=== PATIENT | female | born 1985 | race Caucasian/White ===

== ENCOUNTER 2019-02-22 04:06 | Emergency (ER) | payer OTHER ==
--- NOTE | 2019-02-22 04:14 | PDOC ---
History of Present Illness - General Chief Complaint: Pain Stated Complaint: EPIGASTRIC PAIN Time Seen by Provider: 02/22/19 04:14 History Source: Patient - History of Present Illness Initial Comments: 02/22/19 04:23 The patient is a 33 female at a self reported 20 weeks gestation who presents from L&D for acute onset of pain. Pain is epigastric, "knots" and woke her from sleep @ 1:30 a.m. today. Nausea w/o vomiting. Last BM prior to presentation and was normal. Follows with Dr. Lujan and last appointment was two weeks previous with no concerning findings on labs or U/S. Past History - Past Medical History Allergies/Adverse Reactions: Allergies Allergy/AdvReac Type Severity Reaction Status Date / Time coconut Allergy Mild Hives Verified 02/22/19 04:11 Home Medications: Ambulatory Orders Albuterol Sulfate Inhaler - [Ventolin HFA Inhaler -] 2 inh IH PRN PRN 02/22/19 Nitrofurantoin Monohyd/M-Cryst [Macrobid -] 100 mg PO BID #6 capsule 02/22/19 Pnv No.95/Ferrous Fum/Folic AC [ Vitamin Tablet] 1 each PO DAILY COPD: No - Suicide/Smoking/Psychosocial Hx Smoking History: Never smoked Review of Systems - Review of Systems Constitutional: No: Chills, Fever HEENTM: No: Recent change in vision Respiratory: No: Shortness of Breath, Wheezing Cardiac (ROS): No: Chest Pain, Lightheadedness, Palpitations, Syncope ABD/GI: Yes: Nausea, Abdominal cramping. No: Constipated, Diarrhea, Vomiting *Physical Exam - Vital Signs Last Vital Signs Temp Pulse Resp BP Pulse Ox 97.4 F L 80 18 111/64 100 02/22/19 04:08 02/22/19 04:08 02/22/19 04:08 02/22/19 04:08 02/22/19 04:08 - Physical Exam Comments: 02/22/19 04:25 Awake, alert S1, S2, Murmur Lungs CLTA B/L no wheeze/crackle No lower extremity edema, 2+ DP pulse B/L Fundal height between umbilicus sub-xiphoid Medical Decision Making - Medical Decision Making 02/22/19 04:26 33 year old female at self reported 5 months with epigastric abdominal pain. Patient cleared by L&D earlier this evening w/FHR monitoring. Will check urine for asymptomatic bateruria. GI cocktail. Reassess. 02/22/19 04:50 Bedside U/S shows IUP with FHR 132 UA shows 2+ LE with 15 WBC, will treat for ASx bateruria 02/22/19 05:18 Patient reassessed @ bedside; states pain is improved; previously scheduled f/u with OB-Flight Operations Engineer Dr. Lujan tomorrow (02/23). Will discharge home with supportive care and Macrobid prescription. Patient counseled to complete entire antibiotic course. I discussed the physical exam findings, ancillary test results and final diagnoses with the patient. I answered all of the patient's questions. The patient was satisfied with the care received and felt comfortable with the discharge plan and treatment plan. The patient will return to the Emergency Department with any new, persistent or worsening symptoms. *DC/Admit/Observation/Transfer Diagnosis at time of Disposition: Epigastric pain - Discharge Dispostion Disposition: HOME Condition at time of disposition: Good Decision to Admit order: No - Prescriptions Prescriptions: Nitrofurantoin Monohyd/M-Cryst [Macrobid -] 100 mg PO BID #6 capsule - Referrals - Patient Instructions Printed Discharge Instructions: Managing Symptoms of Additional Instructions: You can take Maalox for your pain. Return to the Emergency Department for any new/worsening/concerning symptoms. - Post Discharge Activity
[2019-02-22] MEDS ORDERED: MAG HYDROX/AL HYDROX/SIMETH 30 ML UNIT-DOSE CUP PO ONE (04:21)
[2019-02-22] MEDS ORDERED: MAG HYDROX/AL HYDROX/SIMETH 30 ML UNIT-DOSE CUP ONE (04:23)
[2019-02-22 04:31] VITALS: BP 111/64; PULSE 80; TEMP 97.4; BMI 45.3
[2019-02-22 04:42] LABS: EPI CELLS 3.9 /HPF (0-5/HPF); PH,URINE 6.5 (5.0-8.0); URINE APPEARANCE CLEAR; URINE BACTERIA 130.6 /hpf (NEGATIVE); URINE BILIRUBIN NEGATIVE (NEGATIVE); URINE CASTS 1 /lpf (0-8); URINE COLOR YELLOW; URINE GLUCOSE (UA) NEGATIVE (NEGATIVE); URINE KETONE NEGATIVE (NEGATIVE); URINE LEUK ESTERASE 2+ (NEGATIVE); URINE NITRITE NEGATIVE (NEGATIVE); URINE PROTEIN NEGATIVE (NEGATIVE); URINE RBC 1 /hpf (0-4); URINE UROBILINOGEN 0.2 mg/dL (0.2-1.0); URINE WBC 15 /hpf (0-5)
--- NOTE | 2019-02-22 06:06 | PDOC ---
Attending Attestation - Resident Resident Name: Mayela Zuñiga - ED Attending Attestation I have performed the following: I have examined & evaluated the patient, The case was reviewed & discussed with the resident, I agree w/resident's findings & plan - HPI HPI: 02/22/19 06:05 Pt comes with epig pain. She has been cleared by the BIOLOGY LECTURER as she is in her 3rd trimester of . - Physicial Exam PE: 02/22/19 06:05 Agree with resident exam - Medical Decision Making 02/22/19 06:05 Pt feels better with maalox; she will follow with her PMD. Pt will be treated empirically for UTI.
== END 2019-02-22 05:24 | disposition home or self-care (01) ==
LOC: JER 04:06
PROC: BY4CZZZ Ultrasonography of Second Trimester, Single Fetus (ICD-10-PCS; principal; 2019-02-22)
DX: O26.892 Other specified pregnancy related conditions, second trimester (principal); R82.71 Bacteriuria; R10.13 Epigastric pain; Z3A.20 20 weeks gestation of pregnancy
CPT/HCPCS: 76801-TC; 81003; 99282-25

== ENCOUNTER 2019-03-29 07:00 | Inpatient (IN) | payer OTHER ==
[2019-03-29] MEDS: ELECTROLYTE-148 SOLN 1,000 ML IV SCH ×2 (07:00→08:00)
[2019-03-29] MEDS ORDERED: CITRIC ACID/SODIUM CITRATE 30 ML UNIT-DOSE CUP PO ONE (07:24)
--- NOTE | 2019-03-29 07:31 | HP ---
Past Medical History - Admission Chief Complaint: Elective History of Present Illness: 33 yo @ 39 weeks, EDC 04/05/19, with prior , is pre op for repeat . No complaints. History Source: Patient Limitations to Obtaining History: No Limitations - Past Medical History ...EDC by Tristian: 04/05/19 Heme/Onc: Yes: Anemia - Past Surgical History Past Surgical History: Yes: Hx Myomectomy: No Hx Transabdominal Cerclage: No - Smoking History Smoking history: Never smoked - Alcohol/Substance Use Hx Alcohol Use: No History of Substance Use: reports: None - Social History Usual Living Arrangement: Yes: With Significant Other History of Recent Travel: No Home Medications - Allergies Allergies/Adverse Reactions: Allergies Allergy/AdvReac Type Severity Reaction Status Date / Time coconut Allergy Mild Hives Verified 03/29/19 07:24 - Home Medications Home Medications: Ambulatory Orders Albuterol Sulfate Inhaler - [Ventolin HFA Inhaler -] 2 inh IH PRN PRN 02/22/19 Nitrofurantoin Monohyd/M-Cryst [Macrobid -] 100 mg PO BID #6 capsule 02/22/19 Pnv No.95/Ferrous Fum/Folic AC [ Vitamin Tablet] 1 each PO DAILY Family Disease History - Family Disease History Family History: Unremarkable Review of Systems - Review of Systems Constitutional: reports: No Symptoms Eyes: reports: No Symptoms HENT: reports: No Symptoms Neck: reports: No Symptoms Cardiovascular: reports: No Symptoms Respiratory: reports: No Symptoms Gastrointestinal: reports: No Symptoms Genitourinary: reports: No Symptoms Breasts: reports: No Symptoms Reported Musculoskeletal: reports: No Symptoms Integumentary: reports: No Symptoms Neurological: reports: No Symptoms Endocrine: reports: No Symptoms Hematology/Lymphatic: reports: No Symptoms Psychiatric: reports: No Symptoms Pain Intensity: 0 Physical Exam - Maternity Constitutional: Yes: Well Nourished Eyes: Yes: Conjunctiva Clear HENT: Yes: Atraumatic Neck: Yes: Supple Cardiovascular: Yes: Regular Rate and Rhythm Lungs: Clear to auscultation Breast(s): Yes: WNL - Abdominal Exam/OB Number of Fetuses: Single Presentation: Vertex - Vaginal Exam/OB Vaginal Bleediing: No - Physical Exam ...Motor Strength: WNL Psychiatric: Yes: Alert, Oriented Problem List - Problems (1) 39 weeks gestation of Code(s): Z3A.39 - 39 WEEKS GESTATION OF (2) Previous section Code(s): Z98.891 - HISTORY OF UTERINE SCAR FROM PREVIOUS SURGERY Assessment/Plan Elective Pre op for repeat Consent signed Anesthesia to see patient
[2019-03-29 07:47] VITALS: BMI 44.1
[2019-03-29] MEDS ORDERED: OXYTOCIN 20 UNITS in 0.9% NS 20 UNIT/1,000 ML INFUS.BAG IV ONE ×2 (08:10→10:24)
[2019-03-29] MEDS ORDERED: ePHEDrine SULFATE 50 MG/1 ML AMPULE ONE (08:11)
[2019-03-29] MEDS ORDERED: morphine SULFATE/PF 0.5 MG/ML (2cc Syringe - QUVA) ONE (08:12)
[2019-03-29] MEDS ORDERED: ceFAZolin SODIUM 1 GM VIAL ONE (08:14)
[2019-03-29] MEDS ORDERED: METHYLERGONOVINE MALEATE 0.2 MG/1 ML AMP IM PRN (09:23)
--- NOTE | 2019-03-29 09:28 | OP ---
Operative Note - Note: Operative Date: 03/29/19 Pre-Operative Diagnosis: Elective Operation: Repeat Low Transverse Findings: Baby boy in LOT position Post-Operative Diagnosis: Same as Pre-op Surgeon: Maria Teresa Lujan Software Engineer Sales: Ramon Haley Anesthesia: Spinal Specimens Removed: Placenta Estimated Blood Loss (mls): 600 Operative Report Dictated: Yes
[2019-03-29] MEDS ORDERED: ONDANSETRON 4 MG/2 ML VIAL IVPUSH PRN (09:33)
[2019-03-29] MEDS: FERROUS SO4 325 MG TABLET (FP) PO SCH ×2 (10:19→18:42)
[2019-03-29] MEDS: PRENATAL VITAMINS W/ FOLIC ACID TABLET (FP) PO SCH (10:20)
[2019-03-29] MEDS: OXYTOCIN 20 UNITS in 0.9% NS 20 UNIT/1,000 ML INFUS.BAG IV SCH (10:20)
--- NOTE | 2019-03-29 12:27 | OP ---
DATE OF OPERATION: 03/29/2019 PREOPERATIVE DIAGNOSIS: Previous section at 39 weeks gestation. POSTOPERATIVE DIAGNOSIS: Previous section at 39 weeks gestation. PROCEDURE: Repeat low-transverse section. SURGEON: Maria Teresa Lujan MD TRAFFIC CONTROL OPERATOR: ARYA Lucas ANESTHESIA: Spinal. COMPLICATIONS: None. ESTIMATED BLOOD LOSS: 600 mL. PROCEDURE: Patient was taken to the operating room, where spinal anesthesia was administered. Patient was then prepped and draped in proper sterile fashion. A Pfannenstiel skin incision was then made and carried down through the underlying layer of fascia. The fascia was incised in the midline and extended laterally. The superior aspect of the fascial incision was then grasped with a Russel clamp, elevated, and the rectus muscle dissected off bluntly. Attention was then turned to the inferior aspect of the fascial incision which, in a similar fashion was then grasped with a Russel clamp, elevated, and the rectus muscle dissected off bluntly. The rectus muscle was then in the midline, the peritoneum identified and entered sharply with the Metzenbaum scissors. This incision was then extended superiorly and inferiorly, with good visualization of the bladder. The vesicouterine peritoneum was then grasped with a pickup and entered sharply with the Metzenbaum scissors. This incision was extended laterally, and a bladder flap created digitally. The bladder blade was then inserted and the lower uterine segment was then incised using a 10 blade. This incision was extended laterally and the head delivered atraumatically. Nose and mouth were suctioned and the cord clamped and cut. The infant was handed to the awaiting hotshot superintendent. The placenta was removed manually. The uterus was exteriorized and cleared of all clots and debris. The uterine incision was repaired using 0 Biosyn in a running locked fashion. A 2nd layer of the same suture was used as a means to provide excellent hemostasis. The pelvis was then completely irrigated. The uterus was returned to the abdomen. Then the peritoneum was closed using 2-0 Biosyn, and the fascia was reapproximated using 0 Vicryl in a running fashion. The skin was closed with alvin. Patient tolerated procedure well. Patient was then taken to PACU in stable condition. Pathology: Placenta. MARIA TERESA LUJAN M.D. [id number]
[2019-03-29] MEDS: IBUPROFEN 800 MG/8 ML IJ IVPB PRN ×2 (13:47→22:06)
--- NOTE | 2019-03-30 06:48 | PN ---
Post Note - Post Date of Delivery: 03/29/19 Post Day: 1 Vital Signs: Vital Signs - 24 hr 03/29/19 03/29/19 03/29/19 07:30 09:30 09:45 Temperature 97.7 F 97.4 F L Pulse Rate 84 72 63 Respiratory 18 16 18 Rate Blood Pressure 115/76 104/51 L 107/50 L O2 Sat by Pulse 97 100 Oximetry (%) 03/29/19 03/29/19 03/29/19 10:00 10:15 10:30 Temperature Pulse Rate 74 72 78 Respiratory 18 18 18 Rate Blood Pressure 112/64 108/63 108/76 O2 Sat by Pulse 100 100 100 Oximetry (%) 03/29/19 03/29/19 03/29/19 11:15 12:00 13:00 Temperature 98.4 F Pulse Rate 82 Respiratory 18 18 18 Rate Blood Pressure 114/69 O2 Sat by Pulse Oximetry (%) 03/29/19 03/29/19 03/29/19 13:57 14:00 15:00 Temperature 98.0 F Pulse Rate 77 Respiratory 18 18 18 Rate Blood Pressure 106/55 L O2 Sat by Pulse Oximetry (%) 03/29/19 03/29/19 03/29/19 16:00 17:00 18:00 Temperature 98.2 F Pulse Rate 85 Respiratory 18 18 18 Rate Blood Pressure 99/37 L O2 Sat by Pulse Oximetry (%) 03/29/19 03/29/19 03/29/19 19:00 20:00 21:00 Temperature Pulse Rate Respiratory 20 20 20 Rate Blood Pressure O2 Sat by Pulse Oximetry (%) 03/29/19 03/29/19 03/29/19 21:01 22:00 23:00 Temperature 97.6 F Pulse Rate 81 Respiratory 20 20 20 Rate Blood Pressure 107/56 L O2 Sat by Pulse Oximetry (%) 03/30/19 03/30/19 03/30/19 00:00 01:00 01:15 Temperature 97.6 F Pulse Rate 69 Respiratory 20 20 20 Rate Blood Pressure 99/61 O2 Sat by Pulse Oximetry (%) 03/30/19 03/30/19 03/30/19 02:00 03:00 04:00 Temperature Pulse Rate Respiratory 20 20 20 Rate Blood Pressure O2 Sat by Pulse Oximetry (%) 03/30/19 03/30/19 05:00 06:00 Temperature 98.0 F Pulse Rate 69 Respiratory 20 20 Rate Blood Pressure 107/62 O2 Sat by Pulse Oximetry (%) - Subjective Subjective: Other (Itching all over scrating skin badly) - Objective Afebrile: Yes Breast: Not engorged Abdomen: Soft, Other (incision dressing intact no drainage) Uterus: Fundus firm Vagina: Scant lochia Extremities: Non-tender - Assessment/Plan (1) Previous section Assessment: Other (POD1 Ictching all over) Plan: Other (Notify anesthesia benadryl)
[2019-03-30] MEDS: IBUPROFEN 600 MG TABLET (FP) PO PRN ×2 (07:24→14:25)
[2019-03-30] MEDS: SIMETHICONE 80 MG TAB.CHEW (FP) PO PRN ×2 (07:24→14:26)
[2019-03-30 08:15] LABS: BASO % 0.6 % (0-2.0); EOS % 0.8 % (0-4.5); HEMATOCRIT 28.1 % (32.4-45.2); HEMOGLOBIN 8.8 GM/dL (10.7-15.3); LYMPH % 14.2 % (8-40); MCH 22.1 pg (25.7-33.7); MCHC 31.4 g/dl (32.0-36.0); MEAN CELL VOLUME 70.5 fl (80-96); MONO % 8.6 % (3.8-10.2); NEUT % 75.8 % (42.8-82.8); PLATELET COUNT 296 K/MM3 (134-434); RBC 3.98 M/mm3 (3.60-5.2); RDW 16.6 % (11.6-15.6); WHITE BLOOD COUNT 8.2 K/mm3 (4.0-10.0)
--- NOTE | 2019-03-30 08:49 | PN ---
Progress Note, Physician Chief Complaint: s/p repeat c section under spinal anesthesia History of Present Illness: post op day one with duramorph for post op pain control. - Current Medication List Current Medications: Active Medications Bisacodyl (Dulcolax Suppository -) 10 mg RC PRN PRN PRN Reason: CONSTIPATION Diphenhydramine HCl (Benadryl Injection -) 25 mg IVPUSH Q4H PRN PRN Reason: Pruritis Last Admin: 03/30/19 03:07 Dose: 25 mg Diphtheria/Tetanus/Acell Pertussis (Boostrix -) 0.5 ml IM .ONCE ONE Stop: 03/30/19 10:01 Ferrous Sulfate (Feosol -) 325 mg PO BIDWM [facility] Last Admin: 03/29/19 18:42 Dose: Not Given Parenteral Electrolytes (Plasma-Lyte 148 -) 1,000 mls @ 125 mls/hr IV ASDIR [facility] Last Admin: 03/29/19 08:00 Dose: 125 mls/hr Oxytocin/Sodium Chloride (Normal Saline+20 Units Oxytocin -) 20 unit in 1,000 mls @ 125 mls/hr IV ASDIR [facility] Last Admin: 03/29/19 10:20 Dose: 125 mls/hr Ibuprofen (Motrin -) 600 mg PO Q4H PRN PRN Reason: PAIN LEVEL 1 - 3 Last Admin: 03/30/19 07:24 Dose: 600 mg Ibuprofen (Caldolor Injection -) 800 mg IVPB Q8H PRN PRN Reason: PAIN LEVEL 6-10 Last Admin: 03/29/19 22:06 Dose: 800 mg Methylergonovine Maleate (Methergine Injection -) 0.2 mg IM Q4H PRN PRN Reason: Excessive Bleeding (L&D) Ondansetron HCl (Zofran Injection) 4 mg IVPUSH Q4H PRN PRN Reason: NAUSEA Oxycodone HCl (Roxicodone -) 5 mg PO Q4H PRN PRN Reason: PAIN LEVEL 4 - 6 Multivit/Folic Acid/Iron ( Vitamins (Sjr) -) 1 tab PO DAILY [facility] Last Admin: 03/29/19 10:20 Dose: Not Given Simethicone (Mylicon -) 80 mg PO Q4H PRN PRN Reason: GAS Last Admin: 03/30/19 07:24 Dose: 80 mg - Objective Vital Signs: Vital Signs Temperature 98.0 F 03/30/19 06:00 Pulse Rate 69 03/30/19 06:00 Respiratory Rate 18 03/30/19 08:00 Blood Pressure 107/62 03/30/19 06:00 O2 Sat by Pulse Oximetry (%) 100 03/29/19 10:30 Constitutional: Yes: Well Nourished Cardiovascular: Yes: WNL Respiratory: Yes: WNL Gastrointestinal: Yes: WNL Labs: CBC, BMP 03/30/19 06:00 Assessment/Plan complaining about itching not relieved by Benadryl, otherwise no adverse effects , advised itching should resolve 24 hours post op. Dept of anesthesia will sign off care at this time.
[2019-03-30] MEDS: FERROUS SO4 325 MG TABLET (FP) PO SCH ×2 (09:14→18:39)
[2019-03-30] MEDS: PRENATAL VITAMINS W/ FOLIC ACID TABLET (FP) PO SCH (09:14)
[2019-03-30] MEDS ORDERED: BISACODYL 10 MG SUPP.RECT RC PRN (09:23)
[2019-03-30] MEDS ORDERED: DIPHTH,PERTUSS(ACELL),TET 0.5 ML DISP.SYRIN IM ONE (14:00)
[2019-03-30] MEDS: oxyCODONE HCL 5 MG TABLET PO PRN (14:26)
[2019-03-31] MEDS: OXYTOCIN 20 UNITS in 0.9% NS 20 UNIT/1,000 ML INFUS.BAG IV SCH (00:29)
[2019-03-31] MEDS: ELECTROLYTE-148 SOLN 1,000 ML IV SCH (00:29)
[2019-03-31] MEDS: oxyCODONE HCL 5 MG TABLET PO PRN ×2 (03:11→17:00)
[2019-03-31] MEDS: SIMETHICONE 80 MG TAB.CHEW (FP) PO PRN ×2 (03:11→15:23)
[2019-03-31] MEDS: IBUPROFEN 600 MG TABLET (FP) PO PRN ×2 (03:11→15:22)
[2019-03-31] MEDS ORDERED: ACETAMINOPHEN 325 MG TABLET (FP) PO PRN (07:30)
[2019-03-31] MEDS: FERROUS SO4 325 MG TABLET (FP) PO SCH ×2 (09:00→16:57)
[2019-03-31] MEDS: PRENATAL VITAMINS W/ FOLIC ACID TABLET (FP) PO SCH (09:05)
--- NOTE | 2019-03-31 13:15 | PATH ---
Surgical Pathology Report Patient Name: SHAHID KOWALSKI Med. Rec. #: [id number] /Age/Gender: 1985 (Age: 33) / F Account: [id number] Location: [facility] OBS/LEATHER GOODS MAKER Taken: 03/29/2019 Received: 03/30/2019 Reported: 03/31/2019 Physicians: Maria Teresa Lujan M.D. Specimen(s) Received PLACENTA Clinical History , 39.1 weeks Final Diagnosis PLACENTA, DELIVERY: FOCALLY DISRUPTED THIRD TRIMESTER PLACENTA WITH THREE VESSEL UMBILICAL CORD AND UNREMARKABLE PLACENTAL MEMBRANES. Electronically Signed Jeancarlos Stein M.D. Gross Description The specimen is received fresh labeled placenta and is a 501 gram, 20.0 x 15.5 x 2.3 cm. placenta with attached membranes and umbilical cord. The attached membranes are moctezuma, translucent with focal opacities and insert marginally. The umbilical cord measures 30 cm. in length and averages 1.4 cm. in diameter. The cord inserts eccentrically, 2.5 cm. to the nearest margin. No true knots or strictures are identified. Cut surface of the umbilical cord reveals 3 vessels. The surface is castaneda green, meconium stained with minimal fibrin deposition and appropriate caliber vessels. The maternal surface is red-brown with focal defects. Sectioning reveals red-brown, spongy parenchyma. No lesions are identified. Real Estate Attorney sections are submitted in three cassettes as follows: 1- membrane rolls and umbilical cord; 2-3- full thickness sections of placenta. /03/30/2019 [facility]03/30/2019
[2019-04-01] MEDS: oxyCODONE HCL 5 MG TABLET PO PRN (00:59)
[2019-04-01] MEDS: SIMETHICONE 80 MG TAB.CHEW (FP) PO PRN (00:59)
[2019-04-01] MEDS: IBUPROFEN 600 MG TABLET (FP) PO PRN (01:00)
[2019-04-01] MEDS ORDERED: SENNOSIDES/DOCUSATE COMBO (SENNA PLUS) TABLET (UD) PO PRN (01:45)
--- NOTE | 2019-04-01 05:52 | DS ---
Physical Exam-FILTER OPERATOR Vital Signs: Vital Signs Temperature 97.8 F 03/31/19 21:22 Pulse Rate 76 03/31/19 21:22 Respiratory Rate 20 03/31/19 21:22 Blood Pressure 116/71 03/31/19 21:22 O2 Sat by Pulse Oximetry (%) 100 03/29/19 10:30 Labs: CBC, BMP 03/30/19 06:00 Delivery - Delivery Type of Anesthesia: Spinal Episiotomy/Laceration: None EBL (cc): 600 Delivery, Single - Stages of Labor Date of Delivery: 03/29/19 Time of Delivery: 08:44 Time Placenta Delivered: 08:45 - Condition of Electric Frying Pan Repairer/Wire Winding Machine Tender Present: No Gender: Male Weight: 7 lb 14 oz Position: Left, OT Total Hours ROM (Hrs/Mins): 0/1 - 1 Minute Total Score: 9 5 Minutes Total Score: 9 - Feeding Plan Initial Plan: Exclusive throughout hospitalization Discharge Summary Reason For Visit: REPEAT Current Active Problems 39 weeks gestation of (Acute) Previous section (Acute) Hospital Course: PT admitted on 03/29 for scheduled repeat c section. Pt underwent uncomplicated procedure and delivery and was discharged home on post op day 3. Condition: Good - Instructions Diet, Activity, Other Instructions: Physical activity Resume your normal everyday activity as tolerated no heavy lifting or exercise until seen by your surgeon. You may walk unlimited kacey of and climb stairs. You may resume driving the car when you feel safe and comfortable behind the wheel. No sexual activity as instructed. Wound care If you have a bandage, leave it on, and keep dry for 48-72 hours. After that time discard the outer bandage. If they are tapes on the skin under the out of bandage leave them in place. They will peel off in the next 7 to 10 days. Do Not Peel them off. You may shower the day after surgery. If there are tapes present on the skin, you may shower over them. Diet There are no dietary restrictions. Eat healthy, high-fiber foods. Drink 6 to 8 glasses of liquid each day. This will assist in keeping your bowels are regular. Pain management You may take Tylenol or acetaminophen or Ibuprofen (for example, Motrin, Advil etc.) from my pain prescription medication is ordered should be taken as prescribed for moderate to severe pain. Call MD for any of the following: Severe pain not relieved by medication Fever of 101 or higher Excessive bleeding or drainage on dressing Inability to urinate Referrals: Maria Teresa Lujan MD [Staff Physician] - 1 Week Disposition: HOME - Home Medications Comprehensive Discharge Medication List: Ambulatory Orders Albuterol Sulfate Inhaler - [Ventolin HFA Inhaler -] 2 inh IH PRN PRN 02/22/19 Pnv No.95/Ferrous Fum/Folic AC [ Vitamin Tablet] 1 each PO DAILY
[2019-04-01] MEDS: FERROUS SO4 325 MG TABLET (FP) PO SCH (07:51)
[2019-04-01 08:47] LABS: BASO % 0.3 % (0-2.0); EOS % 3.2 % (0-4.5); HEMATOCRIT 24.9 % (32.4-45.2); LYMPH % 29.3 % (8-40); MCH 22.7 pg (25.7-33.7); MCHC 32.2 g/dl (32.0-36.0); MEAN CELL VOLUME 70.5 fl (80-96); MEAN PLT VOLUME 7.7 fl (7.5-11.1); MONO % 10.1 % (3.8-10.2); NEUT % 57.1 % (42.8-82.8); RBC 3.53 M/mm3 (3.60-5.2); RDW 16.7 % (11.6-15.6); WHITE BLOOD COUNT 6.2 K/mm3 (4.0-10.0)
[2019-04-01 09:20] LABS: PLATELET COUNT 299 K/MM3 (134-434)
[2019-04-01] MEDS: PRENATAL VITAMINS W/ FOLIC ACID TABLET (FP) PO SCH (11:23)
[2019-04-01 12:06] VITALS: BP 134/74; PULSE 75; TEMP 98.2
== END 2019-04-01 13:00 | disposition home or self-care (01) | DRG 540 ==
LOC: JLDR 07:00 → J3W 11:05 → EDSTATUS 12:46
PROVIDERS: ADMIT Obstetrics & Gynecology; ATTEND Obstetrics & Gynecology
PROC: 10D00Z1 Extraction of Products of Conception, Low, Open Approach (ICD-10-PCS; principal; 2019-03-29)
DX: O34.219 Maternal care for unspecified type scar from previous cesarean delivery (principal); Z3A.39 39 weeks gestation of pregnancy; Z37.0 Single live birth; L29.9 Pruritus, unspecified
CPT/HCPCS: 36415; 85025; 86850; 86900; 86901; 88307-TC; 90715; 94010

== ENCOUNTER 2021-09-28 15:08 | Emergency (ER) | payer OTHER ==
[2021-09-28] MEDS ORDERED: ACETAMINOPHEN 500 MG TABLET (FP) PO ONE (15:22)
[2021-09-28 15:27] VITALS: BP 116/72; PULSE 87; TEMP 97.9; BMI 43.4
[2021-09-28] MEDS ORDERED: MAG HYDROX/AL HYDROX/SIMETH -MYLANTA- ORAL SUSPENSION PO ONE (15:42)
[2021-09-28] MEDS ORDERED: FAMOTIDINE 10 MG TABLET PO ONE (15:42)
[2021-09-28] MEDS ORDERED: ACETAMINOPHEN 325 MG TABLET (FP) ONE (16:04)
[2021-09-28] MEDS ORDERED: MAG HYDROX/AL HYDROX/SIMETH 30 ML UNIT-DOSE CUP ONE (16:04)
[2021-09-28] MEDS ORDERED: FAMOTIDINE 10 MG TABLET ONE (16:04)
[2021-09-28 16:24] LABS: BASO % 0.3 % (0-2.0); EOS % 0.4 % (0-4.5); HEMATOCRIT 33.5 % (32.4-45.2); HEMOGLOBIN 10.4 GM/dL (10.7-15.3); LYMPH % 8.9 % (8-40); MCH 21.2 pg (25.7-33.7); MCHC 31.2 g/dl (32.0-36.0); MEAN CELL VOLUME 68.1 fl (80-96); MEAN PLT VOLUME 7.7 fl (7.5-11.1); MONO % 3.8 % (3.8-10.2); NEUT % 86.6 % (42.8-82.8); PLATELET COUNT 355 10^3/uL (134-434); RBC 4.91 M/mm3 (3.60-5.2); RDW 16.8 % (11.6-15.6); WHITE BLOOD COUNT 11.6 K/mm3 (4.0-10.0)
[2021-09-28 16:48] LABS: CHLORIDE 107 mmol/L (98-107); SODIUM 140 mmol/L (136-145)
[2021-09-28 16:50] LABS: ALBUMIN 3.3 g/dl (3.4-5.0); ANION GAP 7 MMOL/L (8-16); BLOOD UREA NITROGEN 9.2 mg/dL (7-18); CALCIUM 8.8 mg/dL (8.5-10.1); CO2 27 mmol/L (21-32); GLUCOSE,RANDOM 126 mg/dL (74-106); LIPASE 170 U/L (73-393); MAGNESIUM 2.1 mg/dL (1.8-2.4)
[2021-09-28 16:53] LABS: SGOT/AST 232 U/L (15-37); SGPT/ALT 135 U/L (13-61)
[2021-09-28 16:54] LABS: CREATININE 0.7 mg/dL (0.55-1.3)
[2021-09-28 16:55] LABS: BILIRUBIN,TOTAL 0.4 mg/dL (0.2-1); TOT PROT 7.9 g/dl (6.4-8.2)
[2021-09-28 16:56] LABS: ALK PHOS 145 U/L (45-117)
[2021-09-28 17:34] LABS: ANISOCYTOSIS 1+; MACROCYTOSIS 1+
[2021-09-28 17:49] LABS: EPI CELLS >36 /uL (0-25.1); HYALINE CASTS 10 /uL (0-3.1); URINE APPEARANCE CLEAR; URINE BACTERIA 862 /uL (0-1359); URINE BILIRUBIN NEGATIVE (NEGATIVE); URINE COLOR DK YELLOW; URINE GLUCOSE (UA) NEGATIVE (NEGATIVE); URINE KETONE TRACE (NEGATIVE); URINE LEUK ESTERASE TRACE (NEGATIVE); URINE NITRITE NEGATIVE (NEGATIVE); URINE PROTEIN TRACE (NEGATIVE); URINE RBC 55 /uL (0-23.9); URINE WBC 47 /uL (0-25.8)
== END 2021-09-28 18:56 | disposition home or self-care (01) ==
LOC: JER 15:08
DX: R10.13 Epigastric pain (principal)
CPT/HCPCS: 36415; 71045-TC-FY; 80053; 81003; 82550; 83690; 83735; 84484; 85025; 93005; 93010; 99284-25; C9803; U0003; U0005

== ENCOUNTER 2023-11-24 08:00 | Inpatient (IN) | payer OTHER ==
[2023-11-24] MEDS: ELECTROLYTE-148 SOLN 500 ML IV ONE (08:40)
[2023-11-24] MEDS: ELECTROLYTE-148 SOLN 1,000 ML IV SCH (09:10)
[2023-11-24 09:16] VITALS: BMI 44.6
[2023-11-24] MEDS ORDERED: IBUPROFEN 600 MG TABLET (FP) PO PRN (09:35)
[2023-11-24] MEDS ORDERED: ACETAMINOPHEN 325 MG TABLET (FP) PO PRN ×2 (09:35→13:32)
[2023-11-24] MEDS ORDERED: ONDANSETRON 4 MG/2 ML VIAL IVPUSH PRN (09:35)
[2023-11-24] MEDS: CITRIC ACID/SODIUM CITRATE 30 ML UNIT-DOSE CUP PO ONE (09:55)
[2023-11-24] MEDS ORDERED: LIGASURE IMPACT TP ONE (11:15)
[2023-11-24] MEDS ORDERED: morphine SULFATE/PF 1 MG/2 ML (2cc Syringe - QUVA) ONE ×2 (11:27→12:10)
[2023-11-24] MEDS ORDERED: FENTANYL CITRATE/PF 50 MCG/ML VIAL ONE (11:27)
[2023-11-24] MEDS ORDERED: DEXAMETHASONE SOD PHOSPHATE 4 MG/1 ML VIAL ONE (11:29)
[2023-11-24] MEDS ORDERED: KETOROLAC TROMETHAMINE 30 MG/1 ML VIAL ONE (11:29)
[2023-11-24] MEDS ORDERED: OXYTOCIN 10 UNITS/ML VIAL ONE (11:29)
[2023-11-24] MEDS ORDERED: EPINEPHrine/PF 1 MG/1 ML (1:1,000) AMPULE ONE (11:44)
[2023-11-24] MEDS ORDERED: LIDOCAINE HCL/PF 2% SDV 5ML VIAL ONE (11:44)
[2023-11-24 12:18] LABS: HIV INTERPRETATION NEGATIVE (NEGATIVE)
[2023-11-24 13:12] LABS: CORD BASE EXCESS -6.1 mmol/L (0-2); CORD HCO3 21.4 mmHg (20-29); CORD PCO2 49.7 mmHg (30-78); CORD pH 7.252 (7.14-7.44)
[2023-11-24 13:16] LABS: CORD HCO3 24.3 mmHg (20-29); CORD PCO2 62.8 mmHg (30-78); CORD pH 7.206 (7.14-7.44)
[2023-11-24] MEDS ORDERED: SENNOSIDES/DOCUSATE COMBO (SENNA PLUS) TABLET (UD) PO PRN (13:32)
[2023-11-24] MEDS ORDERED: METHYLERGONOVINE MALEATE 0.2 MG/1 ML AMP IM PRN (13:32)
[2023-11-24] MEDS: LACTATED RINGERS SOLUTION 500 ML IV ONE (15:20)
[2023-11-24] MEDS ORDERED: OXYTOCIN 20 UNITS in 0.9% NS 20 UNIT/1,000 ML INFUS.BAG IV ONE (15:45)
[2023-11-24] MEDS: OXYTOCIN 20 UNITS in 0.9% NS 20 UNIT/1,000 ML INFUS.BAG IV SCH (15:55)
[2023-11-24] MEDS: morphine SULFATE/PF 1 MG/2 ML (2cc Syringe - QUVA) EP ONE (16:56)
[2023-11-25] MEDS ORDERED: oxyCODONE HCL 5 MG TABLET PO PRN ×2 (01:32)
[2023-11-25] MEDS: IBUPROFEN 800 MG/8 ML IJ IVPB PRN (06:04)
[2023-11-25 07:48] LABS: BASO % 0.3 % (0-2.0); EOS % 0.1 % (0-4.5); HEMATOCRIT 26.2 % (32.4-45.2); HEMOGLOBIN 8.5 GM/dL (10.7-15.3); LYMPH % 20.2 % (8-40); MCH 21.2 pg (25.7-33.7); MCHC 32.3 g/dl (32.0-36.0); MEAN CELL VOLUME 65.7 fl (80-96); MEAN PLT VOLUME 7.2 fl (7.5-11.1); MONO % 8.3 % (3.8-10.2); NEUT % 71.1 % (42.8-82.8); PLATELET COUNT 312 10^3/uL (134-434); RBC 3.99 M/mm3 (3.60-5.2); RDW 19.4 % (11.6-15.6); WHITE BLOOD COUNT 10.3 K/mm3 (4.0-10.0)
[2023-11-25] MEDS: ENOXAPARIN NA (PORCINE) 40 MG/0.4 ML DISP.SYRIN SQ SCH (12:42)
[2023-11-25] MEDS ORDERED: BISACODYL 10 MG SUPP.RECT RC PRN (13:32)
[2023-11-25] MEDS: IBUPROFEN 600 MG TABLET (FP) PO PRN (17:06)
[2023-11-26] MEDS: SIMETHICONE 80 MG TAB.CHEW (FP) PO PRN (07:15)
[2023-11-27 08:15] LABS: BASO % 0.7 % (0-2.0); EOS % 2.1 % (0-4.5); HEMATOCRIT 27.7 % (32.4-45.2); HEMOGLOBIN 8.9 GM/dL (10.7-15.3); LYMPH % 24.8 % (8-40); MCH 21.4 pg (25.7-33.7); MEAN CELL VOLUME 66.8 fl (80-96); MEAN PLT VOLUME 7.4 fl (7.5-11.1); MONO % 7.9 % (3.8-10.2); NEUT % 64.5 % (42.8-82.8); PLATELET COUNT 312 10^3/uL (134-434); RBC 4.14 M/mm3 (3.60-5.2); RDW 19.8 % (11.6-15.6); WHITE BLOOD COUNT 6.7 K/mm3 (4.0-10.0)
[2023-11-27 11:30] VITALS: BP 122/76; PULSE 95; RESP 16; TEMP 97.4
== END 2023-11-27 14:05 | disposition home or self-care (01) | DRG 540 ==
LOC: JLDR 08:06 → J3W 13:50
PROVIDERS: ADMIT Obstetrics & Gynecology; ATTEND Obstetrics & Gynecology
PROC: 10D00Z1 Extraction of Products of Conception, Low, Open Approach (ICD-10-PCS; principal; 2023-11-24)
PROC: 0UL70ZZ Occlusion of Bilateral Fallopian Tubes, Open Approach (ICD-10-PCS; 2023-11-24)
DX: O34.219 Maternal care for unspecified type scar from previous cesarean delivery (principal); O99.02 Anemia complicating childbirth; Z3A.39 39 weeks gestation of pregnancy; Z37.0 Single live birth; Z98.84 Bariatric surgery status; Z30.2 Encounter for sterilization
CPT/HCPCS: 36415; 36600; 80048; 80053; 82803; 85025; 85610; 86780; 86850; 86900; 86901; 87070; 87205; 87389; 88305-TC; 88307-TC; 94010